=== PATIENT | male | born 1995 | race Hispanic/Latino ===

== ENCOUNTER 2018-01-27 10:40 | Emergency (ER) | payer SELFPAY ==
--- NOTE | 2018-01-27 11:11 | RAD ---
LUMBAR SPINE SERIES THREE VIEWS: History: Low back pain after lifting something heavy at work. FINDINGS: Vertebral bodies are normal in height. There are some small osteophytes seen at the L4-5 level with s ome minimal disc narrowing at this level. No spondylolisthesis. Pedicles are intact. IMPRESSION: Degenerative changes at the L4-5 level. POS: [facility]
--- NOTE | 2018-01-27 11:14 | RAD ---
SACRUM AND COCCYX THREE VIEWS: History: Injury at work. FINDINGS: SI joints are symmetric. I do not see any signs of fracture. IMPRESSION: Unremarkable sacrum and coccyx. POS: [facility]
== END 2018-01-27 12:42 | disposition home or self-care (01) ==
LOC: ERS 10:40
DX: S39.012A Strain of muscle, fascia and tendon of lower back, initial encounter (principal); F17.210 Nicotine dependence, cigarettes, uncomplicated; X50.0XXA Overexertion from strenuous movement or load, initial encounter
CPT/HCPCS: 72100; 72220